=== PATIENT | male | born 1985 | race Caucasian/White ===

== ENCOUNTER 2019-06-19 09:53 | Emergency (ER) | payer OTHER ==
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
[2019-06-19] MEDS ORDERED: EMLA Cream 5 GM TP ONE ×2 (10:25→10:49)
[2019-06-19] MEDS ORDERED: BACIGUENT PACKET TP ONE (10:25)
[2019-06-19] MEDS ORDERED: Adacel Vial IM ONE ×2 (10:26→10:50)
[2019-06-19] MEDS ORDERED: BACIGUENT PACKET ONE (10:49)
[2019-06-19 11:03] VITALS: BP 120/72; PULSE 63; O2SAT 97
== END 2019-06-19 12:04 | disposition home or self-care (01) ==
LOC: ED 09:53
DX: S51.012A Laceration without foreign body of left elbow, initial encounter (principal); W22.8XXA Striking against or struck by other objects, initial encounter
CPT/HCPCS: 12001; 80307; 90471; 90715; 99283; A9270-GY

== ENCOUNTER 2024-06-04 11:49 | Emergency (ER) | payer OTHER ==
[2024-06-04 12:10] VITALS: TEMP 97.5; O2SAT 100
[2024-06-04 12:49] LABS: Absolute Neutrophil Ct (ANC) 4.54 x10^3/uL (1.78-5.38); BASOPHIL % 0.8 % (0.2-1.2); Basophil (Absolute #) 0.05 x10^3/uL (0.01-0.08); Eosinophil % 0.6 % (0.8-7.0); Eosinophil (Absolute #) 0.04 x10^3/uL (0.04-0.54); Hematocrit 46.7 % (40.1-51.0); Hemoglobin 15.7 g/dL (13.7-17.5); IMMATURE GRAN # 0.02 x10^3u/L (0.001-0.031); IMMATURE GRAN % 0.3 % (0.001-0.429); Lymphocyte (Absolute #) 1.37 x10^3/uL (1.32-3.57); Lymphocytes % 21.5 % (21.8-53.1); Mean Corpuscular Hemoglobin 30.3 pg (25.7-32.2); Mean Corpuscular Hgb Concent. 33.6 g/dL (32.3-36.5); Mean Platelet Volume 10.4 fL (9.4-12.4); Monocyte (Absolute #) 0.35 x10^3/uL (0.30-0.82); Monocytes % 5.5 % (5.3-12.2); Neutrophil % 71.3 % (34.0-67.9); Platelet Count 224 x10^3/uL (163-337); Red Blood Count 5.19 x10^6/uL (4.63-6.08); Red Cell Distribution Width 12.2 % (11.6-14.4); White Blood Count 6.4 x10^3/uL (4.23-9.07)
[2024-06-04 13:02] VITALS: BP 132/78
--- NOTE | 2024-06-04 13:29 | XRAY ---
CLINICAL HISTORY: arm pain , anxiey COMPARISON: None. TECHNIQUE: Portable X-ray of the chest, AP view. FINDINGS: Radiographic examination of the chest demonstrates clear lungs. Normal configuration of the mediastinum. The scot are normal in size and position. The cardiac size is normal. The bony thorax is unremarkable. The costophrenic and cardiophrenic angles are clear. IMPRESSION: Unremarkable x-ray for the chest. Electronically Signed by: Kameron Davis MD. (06/04/2024 13:26:06 EDT)
[2024-06-04 13:32] LABS: ALBUMIN 4.9 g/dL (3.5-5.0); ANION GAP 16.7 MEQ/L (5-15); BILIRUBIN,TOTAL 0.7 mg/dL (0.2-1.3); Calcium 9.3 mg/dL (8.4-10.2); Creatinine 1 0.87 mg/dL (0.66-1.25); MAGNESIUM 2.3 mg/dL (1.6-2.3); Potassium 4.1 mmol/L (3.5-5.1); TSH, 3RD Generation 1.313 mIU/L (0.470-4.680); Total Protein 8.2 g/dL (6.3-8.2)
--- NOTE | 2024-06-04 13:48 | ERPHSYRPT ---
- History of Present Illness Time Seen by Provider: 06/04/24 11:52 Source: patient Exam Limitations: no limitations Patient Subjective Stated Complaint: pt states that he is having anxiety about his health. Triage Nursing Assessment: pt ambulated into the er; pt is axo x4; anxious, talkative; c/o anxiety; pt states 1/10 pain to left arm stating a tension to the left arm; strong left radial pulse; skin PDW; no respiratory distress present; vitals wnl Physician History: 39-year-old male with history of anxiety presented in the ER with worsening anxiety over his health. Patient reports he had sinus congestion, some antibiotic was prescribed but patient looked over the side effects on [employer] and did not take it. Patient reports feeling some heaviness/pressure in the ears. Denies any chest pain but has some discomfort/ache in the left left arm which she describes as a mild tension for the last few days. Denies any difficulty breathing or palpitations. Patient reports he googles a lot and is worried about his health but no other specific symptoms, wanted to see his primary care and could not get an appointment today and was recommended to be seen in the ER. Allergies/Adverse Reactions: amoxicillin Adverse Reaction (Verified 06/04/24 11:58) Hx Tetanus, Diphtheria Vaccination/Date Given: No (unknown) Hx Influenza Vaccination/Date Given: No Hx Pneumococcal Vaccination/Date Given: No Travel Risk - International Travel Have you traveled outside of the country in past 3 weeks: No - Emerging Infectious Disease Are you exhibiting symptoms associated with any current EIDs: No - Review of Systems Constitutional: No Symptoms Eyes: No Symptoms Ears, Nose, & Throat: Ear Pain, Sinus Drainage Respiratory: No Symptoms Cardiac: No Symptoms Abdominal/Gastrointestinal: No Symptoms Genitourinary Symptoms: No Symptoms Musculoskeletal: No Symptoms Skin: No Symptoms Psychological: Anxiety Endocrine: No Symptoms Hematologic/Lymphatic: No Symptoms Immunological/Allergic: No Symptoms - Past Medical History Pertinent Past Medical History: No Neurological History: No Pertinent History ENT History: No Pertinent History Cardiac History: Other Respiratory History: No Pertinent History Endocrine Medical History: No Pertinent History Musculoskeletal History: No Pertinent History GI Medical History: No Pertinent History History: No Pertinent History Psycho-Social History: No Pertinent History Male Reproductive Disorders: No Pertinent History - Past Surgical History Past Surgical History: Yes Neuro Surgical History: No Pertinent History Cardiac: No Pertinent History Respiratory: No Pertinent History Gastrointestinal: Appendectomy Genitourinary: No Pertinent History Musculoskeletal: No Pertinent History Male Surgical History: No Pertinent History, Testicular Surgery Other Surgical History: TONSILS - Social History Smoking Status: Never smoker Exposure to second hand smoke: No Drug Use: none Patient Lives Alone: No - Social Determinants of Health Will the patient participate in the screening: Yes Do you worry about a steady place to live?: No Do you have any problems with any of the following?: No known problems In the past 12 months,have you had to go without utilities?: No Transportation Issues: No Has anyone in your support network made you feel unsafe?: No Have you or anyone in your house had to go without enough: No - Nursing Vital Signs Nursing Vital Signs: Initial Vital Signs Temperature 97.5 F 06/04/24 11:59 Pulse Rate 87 06/04/24 11:59 Respiratory Rate 18 06/04/24 11:59 Blood Pressure 129/80 06/04/24 11:59 O2 Sat by Pulse Oximetry 100 06/04/24 11:59 Pain Scale Pain Intensity 0 - Physical Exam General Appearance: no apparent distress, alert, anxiety Eye Exam: PERRL/EOMI Ears, Nose, Throat Exam: normal ENT inspection Neck Exam: normal inspection, non-tender, supple, carotid bruit Respiratory Exam: normal breath sounds, lungs clear Cardiovascular Exam: regular rate/rhythm, normal heart sounds Gastrointestinal/Abdomen Exam: soft, normal bowel sounds, No tenderness Extremity Exam: normal inspection, normal range of motion Neurologic Exam: alert, oriented x 3, cooperative, rigger up II-XII nml as tested, nml cerebellar function, nml station & gait, sensation nml, No normal mood/affect, No motor deficits Skin Exam: normal color SpO2 Interpretation: normal SpO2: 100 O2 Delivery: Room Air - Course EKG Interpreted by Me: RATE (84), Sinus Rhythm, NORMAL AXIS, NORMAL INTERVALS, NORMAL QRS Lab/Rad Data: Laboratory Result Diagrams 06/04/24 12:35 06/04/24 12:35 Laboratory Results 06/04/24 06/04/24 06/04/24 Range/Units 12:35 12:35 12:35 WBC 6.4 (4.23-9.07) x10^3/uL RBC 5.19 (4.63-6.08) x10^6/uL Hgb 15.7 (13.7-17.5) g/dL Hct 46.7 (40.1-51.0) % MCV 90.0 (79.0-92.2) fL MCH 30.3 (25.7-32.2) pg MCHC 33.6 (32.3-36.5) g/dL RDW 12.2 (11.6-14.4) % Plt Count 224 (163-337) x10^3/uL MPV 10.4 (9.4-12.4) fL Gran % 71.3 H (34.0-67.9) % Immature Gran % (Auto) 0.3 (0.001-0.429) % Nucleat RBC Rel Count 0.0 (0.00-0.2) % Eos # (Auto) 0.04 (0.04-0.54) x10^3/uL Immature Gran # (Auto) 0.02 (0.001-0.031) x10^3u/L Absolute Lymphs (auto) 1.37 (1.32-3.57) x10^3/uL Absolute Monos (auto) 0.35 (0.30-0.82) x10^3/uL Absolute Nucleated RBC 0.00 (0.00-0.012) x10^3u/L Lymphocytes % 21.5 L (21.8-53.1) % Monocytes % 5.5 (5.3-12.2) % Eosinophils % 0.6 L (0.8-7.0) % Basophils % 0.8 (0.2-1.2) % Absolute Granulocytes 4.54 (1.78-5.38) x10^3/uL Basophils # 0.05 (0.01-0.08) x10^3/uL Sodium 140 (135-145) mmol/L Potassium 4.1 (3.5-5.1) mmol/L Chloride 106 (98-107) mmol/L Carbon Dioxide 22 (22-30) mmol/L Anion Gap 16.7 H (5-15) MEQ/L BUN 12 (9-20) mg/dL Creatinine 0.87 (0.66-1.25) mg/dL Estimated GFR 114.0 ML/MIN Glucose 106 (74-106) mg/dL Calcium 9.3 (8.4-10.2) mg/dL Magnesium 2.3 (1.6-2.3) mg/dL Total Bilirubin 0.70 (0.2-1.3) mg/dL AST 34 (17-59) U/L ALT 35 (0-50) U/L Alkaline Phosphatase 43 (38-126) U/L Creatine Kinase 113 (55-170) U/L Troponin I < 0.012 (0.000-0.033) ng/mL Serum Total Protein 8.2 (6.3-8.2) g/dL Albumin 4.9 (3.5-5.0) g/dL TSH 3rd Generation 1.313 (0.470-4.680) mIU/L - Progress Progress: improved Progress Note: 06/04/24 13:51 39-year-old is evaluated in the ER for worsening anxiety about his health. Patient had URI symptoms, pills prescribed antibiotic but has not been taking it because of the side effects. He is also complaining of some left arm tightening sensation. EKG is normal sinus rhythm, negative troponin, normal white count, unremarkable chemistries and negative chest x-ray for acute cardiopulmonary findings reviewed by me followed by official read. Patient is thoroughly counseled and recommended outpatient follow-up. Will gave hydroxyzine for symptomatic relief. discussed signs symptoms of worsening needing return to ER which he seems understanding. Stable for discharge Counseled pt/family regarding: lab results, diagnosis, need for follow-up, rad results Medical Desision Making - Diagnostic Testing Diagnostic test were ordered, analyzed, and reviewed by me: Yes Radiological Interpretation: Interpreted by me, Reviewed by me - Departure Departure Disposition: Home Clinical Impression: Anxiety about health Condition: Stable Critical Care Time: No Referrals: EDUARDO TOWNSEND MD [Primary Care Provider] - Follow up with PCP 1 day Instructions: Anxiety, Adult (DC) Additional Instructions: Follow-up with primary care for reevaluation. Return to ER for if having chest pain palpitations/shortness of breath or worsening of anxiety symptoms. Prescriptions: Hydroxyzine HCl 25 mg [Atarax 25 mg] 25 mg PO Q6H PRN 10 Days #20 tablet PRN Reason: Itching
[2024-06-04 14:16] VITALS: PULSE 80; RESP 18
== END 2024-06-04 14:12 | disposition home or self-care (01) ==
LOC: ED 11:49
DX: F41.9 Anxiety disorder, unspecified (principal); J06.9 Acute upper respiratory infection, unspecified
CPT/HCPCS: 36415; 71045; 80053; 82550; 83735; 84443; 84484; 85025; 93005; 93041; 99283